=== PATIENT | female | born 1980 | race Caucasian/White ===

== ENCOUNTER 2017-11-25 19:14 | Emergency (ER) | payer OTHER, MEDICAID ==
[~2017-11-25] VITALS: Ht 162.6 cm; Wt 63.5 kg
[~2017-11-25 19:14] MED LIST: ACETAMINOPHEN-1 EAC1 PO; AMOXICILLIN 50500 MG PO; AMOXICILLIN500 M1 PO; AUGMENTIN 875875 MG PO; IBUPROFEN 200200 M1 PO; IBUPROFEN 800800 MG PO; NAPROSYN500 MG PO; NORCO 5-325 TA1 EACH PO; PENICILLIN V P500 MG PO; ROBAXIN500 MG PO; TRAMADOL 50 MG50 MG PO; ULTRAM 50MG TAB50 MG PO
[2017-11-25] MEDS ORDERED: KEFLEX500 M1 PO (19:49)
[2017-11-25] MEDS ORDERED: BACTRIM DS TAB1 EACH PO (19:49)
[2017-11-25] MEDS ORDERED: NAPROSYN500 MG PO (19:49)
[2017-11-25] MEDS ORDERED: ACETAMINOPHEN-1 EAC1 PO (19:49)
[2017-11-25 20:07] VITALS: BP 137/89
== END 2017-11-25 20:08 | disposition home or self-care (01) ==
LOC: M.ERS 19:14
DX: L02.412 Cutaneous abscess of left axilla (principal); S46.812A Strain of other muscles, fascia and tendons at shoulder and upper arm level, left arm, initial encounter; X50.0XXA Overexertion from strenuous movement or load, initial encounter; Y93.89 Activity, other specified; Y92.89 Other specified places as the place of occurrence of the external cause; Y99.8 Other external cause status

== ENCOUNTER 2018-02-21 18:25 | Emergency (ER) | payer OTHER ==
[~2018-02-21] VITALS: Ht 154.9 cm; Wt 65.8 kg
[~2018-02-21 18:25] MED LIST changes: +BACTRIM DS TAB1 EACH PO; +KEFLEX500 M1 PO
[2018-02-21] MEDS ORDERED: IBUPROFEN 800800 M1 PO (18:34)
[2018-02-21] MEDS ORDERED: KEFLEX500 M1 PO (18:59)
[2018-02-21] MEDS ORDERED: BACTRIM DS TAB1 EAC1 PO (18:59)
[2018-02-21] MEDS ORDERED: NORCO 5-325 TA1 EACH PO (18:59)
[2018-02-21 19:05] VITALS: BP 123/86
== END 2018-02-21 19:09 | disposition home or self-care (01) ==
LOC: M.ERS 18:25
DX: L02.415 Cutaneous abscess of right lower limb (principal)